=== PATIENT | female | born 1955 | race Caucasian/White ===

== ENCOUNTER → 2017-06-25 | Outpatient (CLI) | payer OTHER ==
[~2017-06-25] MED LIST: ADVAIR HFA120 INHALA IH; ASPIR 8181 M1 PO; ASPIR-LOW81 MG PO; ATORVASTATIN CA10 MG PO; ATORVASTATIN CA40 MG PO; CARDIZEM CD,CA180 MG PO; CARDIZEM CD120 MG PO; CARVEDILOL12.5 MG PO; CARVEDILOL6.25 MG PO; COUMADIN5 MG PO; CYANOCOBAL1000 MCG/2 IM; CYANOCOBALAM1000 MCG PO; Cardizem CD,LA,Cartia,Tiazac,Dilacor,Taztia PO; DAILY VALUE1 EACH PO; DAILY VITAMIN1 EAC8 PO; DILTIAZEM 24HR240 MG PO; DRISDOL50000 UNIT PO; IRON325 M1 PO; LOPRESSOR25 MG; PANTOPRAZOLE SO40 MG; PRILOSEC40 MG PO; PROAIR HFA8.5 GM IH; PYRIDOXINE HCL50 MG PO; SPIRIVA RESPIMAT4 GM IH; SUPER B-50 COM1 EAC1 PO; THIAMINE HCL100 MG PO; TPN ELECTROLYT100 ML IV; TRAMADOL HCL50 MG; VENTOLIN HFA18 GM IH; VITAMIN D31000 UNIT PO; ZEGERID40 MG PO
== END | disposition home or self-care (01) ==
LOC: CDC 09:12
DX: Z01.810 Encounter for preprocedural cardiovascular examination (principal); I45.10 Unspecified right bundle-branch block
CPT/HCPCS: 93000